=== PATIENT | male | born 1960 | race Caucasian/White ===

== ENCOUNTER 2019-09-28 15:05 | Emergency (ER) | payer OTHER ==
[~2019-09-28] VITALS: Ht 177.8 cm; Wt 95.3 kg
[2019-09-28 15:24] VITALS: BP 154/80
[2019-09-28] MEDS ORDERED: ACETYLCYSTEINE 10% (100 MG/ML) 100 MG/ML VIAL INH STA (15:59)
[2019-09-28] MEDS ORDERED: ALBUTEROL SULFATE/IPRATROPIU 3 ML SOL IH ONE (16:00)
[2019-09-28 17:07] VITALS: BP 133/68
== END 2019-09-28 17:06 | disposition home or self-care (01) ==
LOC: MED 15:05
DX: J20.9 Acute bronchitis, unspecified (principal); J44.9 Chronic obstructive pulmonary disease, unspecified; F41.9 Anxiety disorder, unspecified; F12.90 Cannabis use, unspecified, uncomplicated; Z71.6 Tobacco abuse counseling
CPT/HCPCS: 71045; 94640; 99283; J7620; Q0092

== ENCOUNTER 2019-12-28 07:14 | Inpatient (IN) | payer OTHER ==
[~2019-12-28] VITALS: Ht 177.8 cm; Wt 90.7 kg
[2019-12-28] VITALS (12 sets, daily range): BP systolic 101–127; BP diastolic 57–79
--- NOTE | 2019-12-28 07:37 | NUR ---
59 Y/O MALE C/O RLQ PAIN X 3 DAYS. STATES 9/10 BURNING PAIN, WORSE WITH PALPATION. DENIES N/V/D. STATES HE HAD A BOWEL MOVEMENT THIS MORNING, BUT IT WAS SMALLER THAN NORMAL. LAST NORMAL BM WAS 3-4 DAYS AGO. ABD HARD, ROUND, TENDER TO PALP. PT SITTING UPRIGHT CALM AND PLEASANT. STATES NO MEDS TAKEN FOR PAIN. VSS MEDHX: DENIES ALLERGIES: NKA
--- NOTE | 2019-12-28 07:40 | NUR ---
Dr. Lau is evaluating the patient at bedside.
--- NOTE | 2019-12-28 07:40 | NUR ---
DR PARTIDA AT BEDSIDE EXAMINING PT
[2019-12-28] MEDS ORDERED: KETOROLAC 60 MG/2 ML VIAL IM ONE (07:45)
[2019-12-28] MEDS ORDERED: ACETAMINOPHEN 325 MG TAB PO ONE (07:50)
--- NOTE | 2019-12-28 07:51 | NUR ---
PT REFUSED TORADOL IM. DR PARTIDA MADE AWARE
--- NOTE | 2019-12-28 08:07 | NUR ---
PT RETURNED FROM RADIOLOGY VIA [facility]
--- NOTE | 2019-12-28 08:18 | NUR ---
20G IV PLACED TO LT AC. LABS DRAWN FROM IV BY RN.
[2019-12-28 08:27] LABS: BASOPHILS % (AUTO) 0.3 % (0.0-2.0); EOSINOPHILS % (AUTO) 0.2 % (0.0-4.0); HEMATOCRIT 42.9 % (36-52); HEMOGLOBIN 14.8 g/dL (12.0-18.0); LYMPHOCYTES # (AUTO) 0.9 K/uL (2.0-11.5); LYMPHOCYTES % (AUTO) 5.7 % (20.5-51.1); MEAN CORPUSCULAR HEMOGLOBIN 31 pg (27-31); MEAN CORPUSCULAR HGB CONC 34 g/dL (33-37); MEAN CORPUSCULAR VOLUME 89.3 fL (80-94); MONOCYTES # (AUTO) 1.4 K/uL (0.8-1.0); MONOCYTES % (AUTO) 8.7 % (1.7-9.3); NEUTROPHILS # (AUTO) 13.5 K/uL (1.8-7.7); NEUTROPHILS % (AUTO) 85.1 % (42.2-75.2); PLATELET COUNT (AUTO) 316 K/uL (140-450); WHITE BLOOD COUNT (AUTO) 15.9 K/uL (4.8-10.8)
[2019-12-28 08:42] LABS: ALBUMIN 3.4 g/dL (3.4-5.0); ANION GAP 14.7 (8-16); CARBON DIOXIDE 23.4 mmol/L (21-32); CREATININE 1.1 mg/dL (0.6-1.3); POTASSIUM 4.1 mmol/L (3.5-5.1)
[2019-12-28] MEDS ORDERED: NACL 0.9% 1,000 ML IV ONE (09:25)
[2019-12-28] MEDS ORDERED: PIPERACILLIN/TAZOBACTAM 3.375 GM in DEXTROSE 5% 50 ML IV ONE (09:25)
[2019-12-28] MEDS ORDERED: PIPERACILLIN/TAZOBACTAM 3.375 GM VIAL IV ONE (09:37)
--- NOTE | 2019-12-28 10:26 | NUR ---
RESTING IN BED, VISIBLE RISE AND FALL OF THE CHEST. RR EVEN AND UNLABORED. VSS. WILL CONTINUE TO MONITOR.
[2019-12-28] MEDS ORDERED: MORPHINE SULFATE 4 MG/ML SYR IVP PRN (10:30)
[2019-12-28] MEDS ORDERED: ALBUTEROL 0.083% 2.5 MG/3 ML NEBU INH PRN (10:30)
[2019-12-28] MEDS ORDERED: ZOLPIDEM 5 MG TAB PO PRN (10:30)
[2019-12-28] MEDS ORDERED: MORPHINE SULFATE 2 MG/ML SYR IVP PRN (10:30)
[2019-12-28] MEDS ORDERED: LACTATED RINGERS 1,000 ML IV ONE (10:35)
--- NOTE | 2019-12-28 10:44 | NUR ---
Dr. Guevara is evaluating the patient at bedside.
--- NOTE | 2019-12-28 10:55 | NUR ---
Dr. Willis is evaluating the patient at bedside.
--- NOTE | 2019-12-28 11:24 | NUR ---
LAYING IN BED EYES CLOSED, RR EVEN AND UNLABORED. VSS. WILL CONTINUE TO MONITOR
--- NOTE | 2019-12-28 11:48 | NUR ---
PT TAKEN TO OR VIA WHEELCHAIR AT THIS TIME.
[2019-12-28] MEDS ORDERED: BUPIVACAINE-MPF/EPI 0.25% 30 ML VIAL INJ ONE (12:01)
[2019-12-28] MEDS ORDERED: SUCCINYLCHOLINE CHLORIDE 200 MG/10 ML VIAL IVP ONE (12:15)
[2019-12-28] MEDS ORDERED: DEXAMETHASONE 4 MG/ML VIAL ONE (12:15)
[2019-12-28] MEDS ORDERED: HYDROmorphone PFS 2 MG/ML SYR ONE (12:15)
[2019-12-28] MEDS ORDERED: ONDANSETRON 4 MG/2 ML VIAL ONE (12:15)
[2019-12-28] MEDS ORDERED: DESFLURANE 240 ML BTL INH ONE (12:15)
[2019-12-28] MEDS ORDERED: PROPOFOL 200 MG/20 ML VIAL IV ONE (12:15)
[2019-12-28] MEDS ORDERED: ROCURONIUM 50 MG/5 ML VIAL IV ONE (12:15)
[2019-12-28] MEDS ORDERED: KETOROLAC 30 MG/ML VIAL ONE (12:15)
[2019-12-28] MEDS ORDERED: fentaNYL 0.05 MG/ML VIAL ONE (12:15)
[2019-12-28] MEDS ORDERED: HYDROmorphone 1 MG/ML AMP IVP PRN (12:45)
[2019-12-28] MEDS ORDERED: ONDANSETRON 4 MG/2 ML VIAL IVP PRN (12:45)
[2019-12-28] MEDS ORDERED: GENTAMICIN 80 MG/2 ML VIAL ONE (14:10)
--- NOTE | 2019-12-28 15:23 | NUR ---
DISCHARGE PLANNING: THIS IS A 59 Y/O MALE PATIENT FROM HOME, WHO CAME IN DUE TO WORSENING ACUTE ABDOMINAL PAIN FOR 3-4 DAYS. PAST MEDICAL HISTORY OF COPD. INITIAL DIAGNOSIS OF ACUTE DIVERTICULITIS. CURRENT LABS INCLUDE WBC 15.9, H/H 14.8/42.9, NA/K 134/4.1, BUN/CREA 15/1.1. ON ZOSYN. SURGICAL CONSULT IN PLACE. DC PLAN BACK TO HOME ONCE STABLE. Addendum: 12/29/19 at 1531 by Laurie Goncalves CM S/P EX LAP WITH DR. SNOW . CURRENT LABS INCLUDE WBC 14.3, H/H 13.2/39.5, NA/K 136/4.6, BUN/CREA 11/0.9. ON ZOSYN AND BUMEX. MRSA NARES AND BLOOD C/S PENDING. DC PLAN BACK TO HOME ONCE STABLE. Addendum: 01/01/20 at 1205 by Laurie Goncalves CM ON FULL LIQUID DIET. WITH ORDER TO DC FC. GRACE DRAIN DC YESTERDAY. NGT HAD BEEN DC'D WELL YESTERDAY. ON ZOSYN. DC PLAN PENDING ON PATIENT'S RESPONSE TO TREATMENT.
--- NOTE | 2019-12-28 16:40 | NUR ---
TRANSFERRED IN FROM RR THIS 59 YEAR OLD OLD WHITE MALE PER BED ACCOMPANIED BY RR NURSES S/P EXPLORATORY LAPAROTOMY, SMALL BOWEL RESECTION, ENTEROLYSIS, BOWEL ANASTOMOSIS. PT. IS DROWSY BUT EASY TO AROUSE. FOLLOWS SIMPLE COMMANDS. 02 AT 5L/MASK. NGT TO LOW INT. SUCTION WITH SMALL AMT COFFEE GROUND DR. LOWER ABD DRESSINGS DRY AND INTACT. GRACE DRAINAGE IN PLACE WITH DARK RED DR. ABDOMINAL BINDER IN PLACE. AGUILAR CATH. INTACT AND PATENT DRAINING TO LIGHT ANTIONETTE URINE. IV LR INFUSING VIA LT. AC G 20 ANGIO CATH.
--- NOTE | 2019-12-28 16:45 | NUR ---
DR. SNOW CALLED. REPORT ON PT'S CONDITION GIVEN. GAVE ORDERS.
--- NOTE | 2019-12-28 17:00 | NUR ---
PT'S SISTER JACK CALLED. UPDATED ON PT'S CONDITION.
--- NOTE | 2019-12-28 17:15 | NUR ---
IV CHANGED TO D5 1/2 NS AT 70 ML/HR.
[2019-12-28] MEDS: PIPERACILLIN/TAZOBACTAM 3.375 GM in DEXTROSE 5% 50 ML IV SCH (17:22)
[2019-12-28] MEDS: DEXT 5% / NACL 0.45% 1,000 ML IV SCH (17:37)
--- NOTE | 2019-12-28 18:00 | NUR ---
MORE AWAKE AND ALERT. RESPONDS APPROPRIATELY TO QUESTIONS. ABDOMINAL DRESSINGS DRY AND INTACT. GRACE DRAINED 60 ML. NGT TO LOW INT. SUCTION. SMALLL AMT. COFFEE GROUND DRAINAGE. DENIES ANY PAIN. INSTRUCTED TO INFORM NURSE IF HE HAS ANY PAINS/DISCOMFORTS.
--- NOTE | 2019-12-28 19:15 | NUR ---
REPORT GIVEN TO JON CALVERT.
--- NOTE | 2019-12-28 19:17 | NUR ---
RECEIVED PT FROM AM SHIFT RN. ALERT AND ORIENTED X4. PT AND CALM AND COOPERATIVE. ON SIMPLE MASK 5L/MIN. LUNGS SOUNDS CLEAR. RESPIRATIONS EVEN AND UNLABORED.SINUS BRADYCARDIA ON MONITOR. IV SITE, LEFT AC 20 GAUGE, D5 1/2 NS AT 70ML/HR. BOWEL SOUNDS ACTIVE. CAP REFILL LESS THAN 2 SECONDS. GRACE DRAIN, AND ABDOMINAL BINDER IN PLACE. PT ON NPO. AGUILAR CATHETER IN PLACE. DENIES PAIN. WILL CONTINUE TO MONITOR.
--- NOTE | 2019-12-28 20:00 | NUR ---
PT RESTING IN BED, AWAKE AND ALERT. WATCHING TELEVISION. HOB 30 DEGREES. BED LOCKED IN LOWEST POSITION. WILL CONTINUE TO MONITOR.
--- NOTE | 2019-12-28 22:14 | NUR ---
RECEIVED PT ON 5L SIMPLE MASK. RT TOOK OFF SIMPLE MASK AND PLACED ON 3L NC WITH SPO2 OF 95%. PT IN NO APPARENT RESPIRATORY DISTRESS AT THIS TIME. PT REFUSED CPAP AT NIGHT. WILL CONTINUE TO MONITOR PT.
[2019-12-28] MEDS: HYDROmorphone 1 MG/ML AMP IVP PRN (23:01)
--- NOTE | 2019-12-28 23:01 | NUR ---
PT COMPLAINING OF 4/10 PAIN FROM SURGERY SITE. 1 MG OF DILAUDID GIVEN. WILL CONTINUE TO MONITOR.
--- NOTE | 2019-12-28 23:32 | NUR ---
PT STATES RELIEF OF PAIN.
[2019-12-29] VITALS (11 sets, daily range): BP systolic 93–135; BP diastolic 53–89
[2019-12-29] MEDS: PIPERACILLIN/TAZOBACTAM 3.375 GM in DEXTROSE 5% 50 ML IV SCH ×3 (00:45→17:57)
--- NOTE | 2019-12-29 01:15 | NUR ---
PT RESTING IN BED, EYES CLOSED. RESPIRATIONS EVEN AND UNLABORED. CHEST RISE IS SYMMETRICAL. WILL CONTINUE TO MONITOR.
[2019-12-29] MEDS: HYDROmorphone 1 MG/ML AMP IVP PRN ×5 (02:34→17:55)
--- NOTE | 2019-12-29 02:34 | NUR ---
PT COMPLAINING OF 4/10 PAIN. 1MG DILAUDID GIVEN.
--- NOTE | 2019-12-29 03:07 | NUR ---
PT STATES RELIEF OF PAIN. WILL CONTINUE TO MONITOR.
--- NOTE | 2019-12-29 05:30 | NUR ---
PT C/O PAIN. 1 MG DILAUDID GIVEN.
[2019-12-29] MEDS ORDERED: BUMETANIDE 1 MG/4 ML VIAL IV SCH (06:00)
[2019-12-29] MEDS: DEXT 5% / NACL 0.45% 1,000 ML IV SCH ×2 (06:25→21:10)
--- NOTE | 2019-12-29 06:30 | NUR ---
PT STATES RELIEF OF PAIN
[2019-12-29 06:40] LABS: ALBUMIN 2.5 g/dL (3.4-5.0); ANION GAP 12.3 (8-16); CARBON DIOXIDE 25.3 mmol/L (21-32); CREATININE 0.9 mg/dL (0.6-1.3); MAGNESIUM 2.1 mg/dL (1.8-2.4); POTASSIUM 4.6 mmol/L (3.5-5.1); TOTAL BILIRUBIN 0.5 mg/dL (0.0-1.0)
--- NOTE | 2019-12-29 07:30 | NUR ---
REPORT RECEIVED FROM ENRIKE. 02 SAT 86 TO 88% ON ROOM AIR. DENIES ANY SOB. 02 1 L/MIN/NC ADM. 02 SAT 91 TO 94% NOTED. NGT TO LOW INTERMITTENT SUCTION WITH MOD. AMT COFFEE GROUND DRAINAGE. ABDOMINAL DRESSINGS DRY AND INTACT. GRACE IN PLACE WITH SMALL AMT SEROSANGUINOUS DRAINAGE. ABDOMINAL BINDER IN PLACE. FC INTACT AND PATENT DRAINING TO YELLOWISH URINE. WILL DC FC AT 0800. IV D5 O.45% NS AT 70 ML/HR VIA LT AC IV SITE.
--- NOTE | 2019-12-29 07:55 | NUR ---
DR. SNOW CALLED. UPDATED ON PT'S CONDITION. AWARE OF URINE OUTPUT AFTER BUMEX GIVEN = 900 ML CLEAR YELLOWISH. GAVE ORDERS. IVF INCREASED TO 80 ML/HR.
--- NOTE | 2019-12-29 08:00 | NUR ---
AGUILAR CATH. DC'D WITHOUT ANY DIFFICULTY. URINAL AT BEDSIDE. INSTRUCTED PT.ON HOW TO USE THE URINAL AND TO CALL NURSE IF HE NEEDS ANY ASSISTANCE.
[2019-12-29 08:10] LABS: BASOPHILS # (AUTO) 0.1 K/uL (0.00-0.22); BASOPHILS % (AUTO) 0.8 % (0.0-2.0); EOSINOPHILS % (AUTO) 0.2 % (0.0-4.0); HEMATOCRIT 39.5 % (36-52); HEMOGLOBIN 13.2 g/dL (12.0-18.0); LYMPHOCYTES # (AUTO) 0.8 K/uL (2.0-11.5); LYMPHOCYTES % (AUTO) 5.6 % (20.5-51.1); MEAN CORPUSCULAR HEMOGLOBIN 31 pg (27-31); MEAN CORPUSCULAR HGB CONC 33 g/dL (33-37); MONOCYTES # (AUTO) 1.1 K/uL (0.8-1.0); MONOCYTES % (AUTO) 7.5 % (1.7-9.3); NEUTROPHILS # (AUTO) 12.3 K/uL (1.8-7.7); NEUTROPHILS % (AUTO) 85.9 % (42.2-75.2); PLATELET COUNT (AUTO) 329 K/uL (140-450); RED BLOOD CELL COUNT(AUTO) 4.29 MIL/uL (4.20-6.10); RED CELL DISTRIBUTION WIDTH 14.6 % (11.6-13.7); WHITE BLOOD COUNT (AUTO) 14.3 K/uL (4.8-10.8)
--- NOTE | 2019-12-29 08:27 | NUR ---
PATIENT HAS BEEN SCREENED AND CATEGORIZED MODERATE NUTRITION RISK. PATIENT WILL BE SEEN WITHIN 3-5 DAYS OF ADMISSION. 12/30/19 01/01/[address]
[2019-12-29] MEDS: ENOXAPARIN 40 MG/0.4 ML SYR SUBQ SCH (09:04)
--- NOTE | 2019-12-29 10:37 | NUR ---
DR. KAYLA MOISE HERE TO SEE AND EXAMINE PT.
--- NOTE | 2019-12-29 10:40 | NUR ---
DR. KAYLA MOISE MADE THAT PT'S 02 SAT GOES DOWN TO 86 TO 88% ON RA.
--- NOTE | 2019-12-29 11:30 | NUR ---
VISITORS AT BEDSIDE. PT. IS CHEERFUL AND CONVERSANT.
[2019-12-29] MEDS ORDERED: NICOTINE TRANSD SYS 21 MG/24 HR PATCH TD SCH (13:00)
--- NOTE | 2019-12-29 13:35 | NUR ---
DR. SNOW HERE TO SEE AND EXAMINE PT. GAVE ORDERS.
--- NOTE | 2019-12-29 14:05 | NUR ---
ASSISTED TO STAND AT BEDSIDE TO URINATE. USED THE URINAL. UNABLE TO VOID AT THIS TIME. WANTS TO TRY AGAIN LATER. NO HYPOGASTRIC DISTENTION NOTED.
--- NOTE | 2019-12-29 14:15 | NUR ---
COUGHED UP CLEAR SECRETIONS. STATES HE MIGHT NEED BREATHING TREATMENT. C/O SL SOB W/ ACTIVITY. PER PT HE HAS INHALER PRN FOR HIS COPD. RESP. TREATMENT GIVEN BY RT. FELT BETTER AFTER.
--- NOTE | 2019-12-29 14:45 | NUR ---
PER PT HE PREFERS INHALER THAN THE HHN RESP. TX. DR. KAYLA MOISE PAGED THROUGH HIS OFFICE.
--- NOTE | 2019-12-29 15:15 | NUR ---
TRANSFERRED TO TELE 107 A PER BED ON TELE MONITOR. NGT CLAMPED FOR TRANSPORT. 02 AT 1L/MIN/NC. PT IS AWAKE AND ALERT. ABD. DRESSING DRY AND INTACT. GRACE IN PLACE. SMALL AMT SEROSANGUINOUS DRSteven NOTED. REPORT GIVEN TO JON LEON.
--- NOTE | 2019-12-29 15:30 | NUR ---
REPORT RECEIVED FROM ICU CHARGE NURSE YUNIOR. PT AWAKE, ALERT. PT ON O2 NC 2L/MIN, O2 SATS 94 %. HAS IV TO LEFT AC RUNNING D5 O.45% NS AT 70 ML/HR . NGT TO LOW INTERMITTENT SUCTION WITH MOD. AMT COFFEE GROUND DRAINAGE. ABDOMINAL DRESSINGS DRY AND INTACT. GRACE IN PLACE WITH SMALL AMT SEROSANGUINOUS DRAINAGE. ABDOMINAL BINDER IN PLACE. PT STATED HE WANTS TO URINATE BUT HE CAN NOT. HE WILL TRY TO DO IT BY HIMSELF. CALL LIGHT IN REACH, WILL CONTINUE TO MONITOR.
[2019-12-29] MEDS ORDERED: ALBUTEROL HFA MDI 90 MCG/ACTUATION 18 GM INH PRN (16:15)
--- NOTE | 2019-12-29 16:49 | NUR ---
pt c/o unable to urinate. paged .
--- NOTE | 2019-12-29 16:57 | NUR ---
dr. moise called back. notified pt unable to urinate after D/C F/C. DR. MOISE ORDERED STRAIGHT CATH ONE TIME AND FLOMAX 0.4 MG DAILY. INSERTED STRAIGHT CATH , 600 CC URINE CAME OUT.
--- NOTE | 2019-12-29 18:30 | NUR ---
PT SLEEPING IN BED. NO S/S OF RESPIRATORY DISTRESS OR PAIN NOTED.
--- NOTE | 2019-12-29 19:30 | NUR ---
RECEIVED REPORT FROM CAROLYN AT BEDSIDE FOR CONTINUITY OF CARE, PT IN STABLE CONDITION.
--- NOTE | 2019-12-29 20:00 | NUR ---
PT IN SITTING UP IN BED WITH N G TUBE IN PLACE AND SUCTIONING AT INTERMITTED SETTING. PT HAS 400MLS OF DARK BROWN BLOODY FLUID ALREADY SUCTIONED. PT ALSO HAS ABDOMINAL BINDER INTACT, COVERING SURGICAL DRESSINGS. GRACE DRAINS INTACT WITH NO DRAINAGE AT THIS TIME. ALL REQUESTED NEEDS ATTENDED BY STAFF. AND ALL UNIVERSAL PRECAUTIONS IN PLACE.
[2019-12-29] MEDS ORDERED: ALBUTEROL 0.083% 2.5 MG/3 ML NEBU INH ONE (20:45)
[2019-12-29] MEDS: HYDROmorphone PFS 2 MG/ML SYR IVP PRN (20:49)
--- NOTE | 2019-12-29 21:00 | NUR ---
PT SITTING UP IN BED NG TUBE INTACT WITH ORDERED INTERMITTENT SUCTIONING. IV SITE INTACT AND ASYMPTOMATIC RUNNING D5 1/2 NS AT 80 MLS/HR ORDERED. PT C/O SEVERE PAIN IN ABDOMEN WELL NAUSEA, PT GIVEN IVP /PRN DILAUDID FOR PAIN AND ZOFRAN FOR NAUSEA. WILL MONITOR FOR EFFECT. ALL UNIVERSAL PRECAUTIONS IN PLACE.
[2019-12-29] MEDS: ONDANSETRON 4 MG/2 ML VIAL IVP PRN (21:01)
--- NOTE | 2019-12-29 21:32 | NUR ---
RECEIVED PATIENT ON 2L NASAL CANNULA, PULSE OX SAT 89%-90%. INCREASED TO 3LPM, PULSE OX INCREASED SAT 94%. PRN HHN GIVEN DUE TO WHEEZING. TOLERATED TX WELL WITHOUT ADVERSE SIDE EFFECTS. NO ACUTE RESPIRATORY DISTRESS NOTED AT THIS TIME. PT MADE AWARE OF ORDERED MEDICATION FREQUENCY. WILL CONTINUE TO MONITOR.
--- NOTE | 2019-12-29 21:35 | NUR ---
PT REFUSED CPAP AT NIGHT. PT IN NO APPARENT RESPIRATORY DISTRESS AT THIS TIME. WILL CONTINUE TO MONITOR PT.
--- NOTE | 2019-12-29 22:30 | NUR ---
PT IN BED ASLEEP NO S/S OF PAIN OR DISTRESS NOTED. ALL UNIVERSAL AND ASPIRATION PRECAUTIONS IN PLACE.
[2019-12-30] VITALS: BP 116/65
[2019-12-30] MEDS: PIPERACILLIN/TAZOBACTAM 3.375 GM in DEXTROSE 5% 50 ML IV SCH ×4 (01:11→18:20)
[2019-12-30] MEDS: HYDROmorphone PFS 2 MG/ML SYR IVP PRN ×4 (01:44→14:24)
--- NOTE | 2019-12-30 02:00 | NUR ---
SPOKE WITH MD MOISE REGARDING C/O OF PT CANT URINATE, MD MOISE ORDERED STRAIGHT CATH PRN. PT STRAIGHT CATHED GOT 650 OF ANTIONETTE URINE. PT ALSO GIVEN IVP DILAUDID FOR SEVERE PAIN.
[2019-12-30 04:00] VITALS: BP 133/82
[2019-12-30] MEDS: ONDANSETRON 4 MG/2 ML VIAL IVP PRN (05:52)
[2019-12-30] MEDS: LORazepam 2 MG/ML VIAL IVP PRN (05:56)
--- NOTE | 2019-12-30 06:00 | NUR ---
PT AWAKEN AND WAS AGITATED REGARDING THE NG TUBE, HE ALSO C/O OF DISCOMFORT IN GTUBE. PT GIVEN IVP ATIVAN WELL IVP DILAUDID FOR SEVERE PAIN AND ZOFRAN VINICIO C/O OF NAUSEA. PT STRAIGHTER CABBED AGAIN AND GOT OUT 350 OF ANTIONETTE URINE. PT NOW CALM.
[2019-12-30 07:15] LABS: BASOPHILS # (AUTO) 0.1 K/uL (0.00-0.22); BASOPHILS % (AUTO) 0.8 % (0.0-2.0); EOSINOPHILS % (AUTO) 0.5 % (0.0-4.0); HEMATOCRIT 39.2 % (36-52); HEMOGLOBIN 13.4 g/dL (12.0-18.0); LYMPHOCYTES # (AUTO) 1.3 K/uL (2.0-11.5); MEAN CORPUSCULAR HEMOGLOBIN 32 pg (27-31); MEAN CORPUSCULAR HGB CONC 34 g/dL (33-37); MEAN CORPUSCULAR VOLUME 91.7 fL (80-94); MONOCYTES # (AUTO) 0.8 K/uL (0.8-1.0); MONOCYTES % (AUTO) 8.2 % (1.7-9.3); NEUTROPHILS # (AUTO) 7.9 K/uL (1.8-7.7); NEUTROPHILS % (AUTO) 77.5 % (42.2-75.2); PLATELET COUNT (AUTO) 358 K/uL (140-450); RED BLOOD CELL COUNT(AUTO) 4.27 MIL/uL (4.20-6.10); WHITE BLOOD COUNT (AUTO) 10.2 K/uL (4.8-10.8)
--- NOTE | 2019-12-30 07:22 | NUR ---
RECEIVED BEDSIDE REPORT FROM FORKLIFT TRUCK OPERATOR NURSE RITA FOR CONTINUITY OF CARE. PT IS RESTING ON BED AND AROUSABLE TO VOICE. RESPIRATION EVEN AND UNLABORED ON RA. DENIED PAIN, SOB, AND DIZZINESS. NO SIGNS OF DISTRESS NOTED. IV ON LAC 20G, CLEAN AND INTACT, INFUSING PER MD ORDER. NG TUBE IN PLACE AND CONNECTED TO INTERMITTER SUCTIONING. GRACE DRAINAGE IN PLACE AND SMALL AMOUNT OF SEROSANGUINEOUS. ABD WOUND NOTED, COVERED WITH DRESSING, DRESSING CLEAN AND DRY. PT IS BEDREST AT THIS TIME. ICE CHIP ONLY. TELE MONITOR ATTACHED. SAFETY MEASURES IN PLACE. BED IN LOW POSITION AND CALL LIGHT WITHIN REACH. INSTRUCTED PT TO USE THE CALL LIGHT FOR ANY ASSISTANCE AND PT AWARE.
[2019-12-30 07:35] LABS: ALBUMIN 2.4 g/dL (3.4-5.0); ANION GAP 10.4 (8-16); CARBON DIOXIDE 31.2 mmol/L (21-32); POTASSIUM 3.6 mmol/L (3.5-5.1); TOTAL BILIRUBIN 0.5 mg/dL (0.0-1.0)
[2019-12-30 08:00] VITALS: BP 121/77
[2019-12-30] MEDS ORDERED: BUMETANIDE 1 MG/4 ML VIAL IV SCH (08:00)
[2019-12-30] MEDS: ENOXAPARIN 40 MG/0.4 ML SYR SUBQ SCH (08:46)
[2019-12-30] MEDS: DEXT 5% / NACL 0.45% 1,000 ML IV SCH ×2 (08:48→20:39)
[2019-12-30] MEDS: NICOTINE TRANSD SYS 21 MG/24 HR PATCH TD SCH (08:48)
[2019-12-30] MEDS: TAMSULOSIN 0.4 MG CAP PO SCH (08:48)
--- NOTE | 2019-12-30 08:50 | NUR ---
CHECKED VITAL SIGNS PRIOR TO MEDS ADMINISTRATION, VITAL SIGNS: BP 121/77 PULSE 66, RR 18, SPO2 96% ON 2LPM VIA NC, DENIED PAIN. ADMINISTERED MEDS PER MD ORDER, MEDS EDUCATION PROVIDED TO PT AND PT VERBALIZED OK. STOP NG SUCTIONING FOR NOW, ADMINISTERED FLOMAX VIA NG TUBE. PT AWAKE AND RESTING ON BED AT THIS TIME. NO SIGNS OF DISTRESS NOTED. TELE MONITOR ATTACHED. SAFETY MEASURES IN PLACE.
--- NOTE | 2019-12-30 09:56 | NUR ---
PREMEDICATED PT FOR 10/10 PAIN WITH DILAUDID VIA IVP PRIOR TO DR SNOW CHANGES DRESSING. DR TAYLOR CHANGED DRESSING AND PT TOLERATED WELL. PT IS URINARY RETENTION, DR SNOW ORDERED TO INSERT A AGUILAR AND KEEP IN FOR [address] CARLSON REMOVED NG TUBE FROM PT. PT IS RESTING ON BED AT THIS TIME. NO SIGNS OF DISTRESS NOTED. TELE MONITOR ATTACHED. SAFETY MEASURES IN PLACE.
[2019-12-30] MEDS ORDERED: SIMETHICONE 40 MG/0.6 ML PO PRN (10:20)
[2019-12-30] MEDS ORDERED: SIMETHICONE 80 MG TAB.CHEW PO PRN (10:20)
[2019-12-30] MEDS ORDERED: SIMETHICONE 80 MG TAB.CHEW PO SCH (10:30)
--- NOTE | 2019-12-30 11:13 | NUR ---
P.T. NOTES D/C FROM P.T. AFTER TX, ENDORSED TO NURSING; O2 SAT ROOM AIR=88-89%, 2L=92-93%, 3L-95% Addendum: 12/30/19 at 1114 by Maira Morris PT Amended: Links added.
--- NOTE | 2019-12-30 11:24 | NUR ---
ADMINISTERED MYLICON PER MD ORDER, MED EDUCATION PROVIDED TO PT AND PT VERBALIZED UNDERSTANDING. PT IS TALKING ON THE PHONE WITH HIS SISTER. NO SIGNS OF DISTRESS NOTED. TELE MONITOR ATTACHED. SAFETY MEASURES IN PLACE.
[2019-12-30 12:00] VITALS: BP 127/70
--- NOTE | 2019-12-30 12:02 | NUR ---
CALLED [employer] FOR SCD, NO ANSWER. LEFT A MESSAGE FOR SCD REQUEST FOR PT AND MY EXTENSION NUMBER TO CALL BACK.
--- NOTE | 2019-12-30 12:25 | NUR ---
ADMINISTERED ZOSYN PER MD ORDER, MED ED PROVIDED TO PT AND PT VERBALIZED OK. PT IS RESTING ON BED AT THIS TIME. DENIED PAIN, SOB, AND DIZZINESS. NO SIGNS OF DISTRESS NOTED. TELE MONITOR ATTACHED. SAFETY MEASURES IN PLACE.
--- NOTE | 2019-12-30 13:12 | NUR ---
PT IS RESTING ON BED. RESPIRATION EVEN AND UNLABORED ON 2LPM VIA NC. DENIED PAIN, SOB AND DIZZINESS. APPLIED SCD ON PT'S LEGS BILATERALLY. NO SIGNS OF DISTRESS NOTED. TELE MONITOR ATTACHED. TELE MONITOR ATTACHED.SAFETY MEASURES IN PLACE.
--- NOTE | 2019-12-30 14:24 | NUR ---
PT COMPLAINED 9/10 PAIN ON HIS INCISIONAL SITE, REPOSITIONED AND TAUGH PT TO USE RELAXATION TECHNIQUE, PT STATED "IT STILL HURT", MEDICATED PT FOR 9/10 PAIN WITH DILAUDID VIA IVP . MED EDUCATION PROVIDED TO PT AND PT SAID OK. PT IS RESTING ON BED AT THIS TIME. NO SIGNS OF DISTRESS NOTED. TELE MONITOR ATTACHED. SAFETY MEASURES IN PLACE.
--- NOTE | 2019-12-30 15:24 | NUR ---
PT IS AWAKE AND WATCHING TV ON BED AT THIS TIME. STATED HE HAS 2/10 PAIN AND IT'S TOLERABLE FOR HIM. NO SIGNS OF DISTRESS NOTED. TELE MONITOR ATTACHED. SAFETY MEASURES IN PLACE.
[2019-12-30 16:00] VITALS: BP 117/78
--- NOTE | 2019-12-30 17:02 | NUR ---
EMPTIED 5 ML RED DRAINAGE FROM GRACE. PT AWAKE AND TALKING TO SISTER JACK AT BEDSIDE. DENIED PAIN, SOB AND DIZZINESS. NO SIGNS OF DISTRESS NOTED. SCD ON BILATERALLY. TELE MONITOR ATTACHED. SAFETY MEASURES IN PLACE.
--- NOTE | 2019-12-30 18:21 | NUR ---
ADMINISTERED ZOSYN PER MD ORDER, MED ED PROVIDED TO PT AND PT VERBALIZED OK. PT IS RESTING AND WATCHING TV ON BED AT THIS TIME. DENIED PAIN, SOB, AND DIZZINESS. NO SIGNS OF DISTRESS NOTED. TELE MONITOR ATTACHED. SAFETY MEASURES IN PLACE.
[2019-12-30] MEDS: ALBUTEROL SULFATE/IPRATROPIU 3 ML SOL IH PRN (19:08)
--- NOTE | 2019-12-30 19:11 | NUR ---
ENDORSED PT AT BEDSIDE TO BLOOD BANK MANAGER NURSE RITA FOR CONTINUITY OF CARE. PT IS AWAKE AND GETTING A BREATHING TREATMENT FROM RT AT THIS TIME. NO SIGNS OF DISTRESS NOTED. TELE MONITOR ATTACHED. PT IS IN STABLE CONDITION. SAFETY MEASURES IN PLACE.
--- NOTE | 2019-12-30 19:15 | NUR ---
RECEIVED REPORT FROM AME RN DAYSHIFT NURSE AT BEDSIDE FOR CONTINUITY OF CARE, PT IN STABLE CONDITION.
[2019-12-30 20:00] VITALS: BP 113/73
--- NOTE | 2019-12-30 20:37 | NUR ---
ROUNDS MADE PT IS SITTING UP IN BED POST NEB TREATMENT AND ON 2 LITERS VIA N/C. DRESSING INTACT WITH MINIMAL DRAINAGE NOTED AND ABDOMINAL BINDER INTACT. AGUILAR CATH IN PLACE DRAINING ANTIONETTE URINE. PT VERITO PAIN AT THIS TIME V/S FOLLOWS; T 98.5 P 74 R 20 B/P 113/73 02 93% WITH 2 LITERS VIA N/C. ALL FALLS PRECAUTIONS IN PLACE.
--- NOTE | 2019-12-30 21:00 | NUR ---
PT IN BED IV SITE LAC 20 G INTACT AND ASYMPTOMATIC RUNNING D5 1/2NS RUNNING AT 80 MLS/HR. PT HS NO MEDS DUE AT THIS TIME AND DENIES ANY PAIN. ALL FALLS PRECAUTIONS IN PLACE.
--- NOTE | 2019-12-30 22:30 | NUR ---
PT IN BED SLEEPING NO S/S OF PAIN OR DISTRESS NOTED N/C INTACT AND RUNNING AT 2 LITERS VIA N/C. GRACE AND AGUILAR CATHETER INTACT AND ASYMPTOMATIC. ALL FALLS PRECAUTIONS IN PLACE.
[2019-12-31] VITALS: BP 113/60
[2019-12-31] MEDS: HYDROmorphone 1 MG/ML AMP IVP PRN ×2 (00:29→16:33)
--- NOTE | 2019-12-31 00:30 | NUR ---
PT IN BED, ZOSYN HUNG AND RUNNING AT 100MLS/HR ORDERED. V/S FOLLOWS: T 97.4 P 64 R 18 B/P 113/60 02 93% ON ROOM AIR. ALL FALLS PREVENTIONS IN PLACE. Addendum: 12/31/19 at 0805 by Ernestina Wong RN PT ALSO COMPLAINED OF MODERATE PAIN AND WAS GIVEN IVP 1MG DILAUDID.
[2019-12-31] MEDS: PIPERACILLIN/TAZOBACTAM 3.375 GM in DEXTROSE 5% 50 ML IV SCH ×5 (00:44→23:33)
[2019-12-31] MEDS: LORazepam 2 MG/ML VIAL IVP PRN ×2 (03:05→12:06)
--- NOTE | 2019-12-31 03:15 | NUR ---
PT UPSET AND WORRIED AND STARTED CRYING THAT HE WON'T GET BETTER, PT ENCOURAGED WITH CURRENT PROGRESS. HE RECEIVED IVP ATIVAN. PT ALSO DECLINED TO HAVE DRESSING CHANGED. SOME MINIMAL DRAINAGE NOTED, PT DECLINED TO HAVE DRESSING CHANGED, DRESSING WAS REINFORCED.
[2019-12-31 04:00] VITALS: BP 122/74
--- NOTE | 2019-12-31 06:05 | NUR ---
PT IN BED DRESSING INTACT W ABD BINDER, IV SITE INTACT AND RUNNING FLUIDS ORDERED. PT GIVEN IVP DILAUDID FOR SEVERE PAIN GRACE DRAINED 5MLS OF KERRIE BLOOD. ALL FALLS PRECAUTIONS IN PLACE.
[2019-12-31] MEDS: HYDROmorphone PFS 2 MG/ML SYR IVP PRN (06:47)
[2019-12-31 06:56] LABS: BASOPHILS # (AUTO) 0.1 K/uL (0.00-0.22); BASOPHILS % (AUTO) 1.3 % (0.0-2.0); EOSINOPHILS # (AUTO) 0.1 K/uL (0-0.4); EOSINOPHILS % (AUTO) 1.6 % (0.0-4.0); HEMATOCRIT 39.6 % (36-52); HEMOGLOBIN 13.5 g/dL (12.0-18.0); LYMPHOCYTES # (AUTO) 1.6 K/uL (2.0-11.5); LYMPHOCYTES % (AUTO) 19.5 % (20.5-51.1); MEAN CORPUSCULAR HEMOGLOBIN 31 pg (27-31); MEAN CORPUSCULAR HGB CONC 34 g/dL (33-37); MEAN CORPUSCULAR VOLUME 91.2 fL (80-94); MONOCYTES # (AUTO) 0.7 K/uL (0.8-1.0); MONOCYTES % (AUTO) 7.8 % (1.7-9.3); NEUTROPHILS # (AUTO) 5.9 K/uL (1.8-7.7); NEUTROPHILS % (AUTO) 69.8 % (42.2-75.2); PLATELET COUNT (AUTO) 390 K/uL (140-450); RED BLOOD CELL COUNT(AUTO) 4.34 MIL/uL (4.20-6.10); RED CELL DISTRIBUTION WIDTH 14.1 % (11.6-13.7); WHITE BLOOD COUNT (AUTO) 8.4 K/uL (4.8-10.8)
[2019-12-31 07:18] LABS: ALBUMIN 2.3 g/dL (3.4-5.0); ANION GAP 10.9 (8-16); CARBON DIOXIDE 30.7 mmol/L (21-32); CREATININE 0.9 mg/dL (0.6-1.3); POTASSIUM 3.6 mmol/L (3.5-5.1); TOTAL BILIRUBIN 0.6 mg/dL (0.0-1.0)
--- NOTE | 2019-12-31 07:23 | NUR ---
RECEIVED PATIENT FROM SUPERVISOR ACCOUNTS RECEIVABLE NURSE FOR CONTINUITY OF CARE. PATIENT IS SLEEPING. RESPIRATIONS EVEN AND UNLABORED, ROOM AIR NO SOB. VISIBLE CHEST RISE NOTED. ON TELE MONITORING. ABDOMEN ROUND, SOFT, NONTENDER. ACTIVE BOWEL SOUNDS X4 QUADS. S/P EXPLORATION SURGERY/LAP APPENDECTOMY, DRESSING DRY AND INTACT. NO DRAINAGE. SKIN WARM, DRY. IV IN THE LEFT AC G22, RUNNING D51/2NS AT 80 ML/HR. IV PATENT AND FLUSHING WELL. PATIENT IS BED BOUND. FALL, SEIZURE, AND ASPIRATION PRECAUTIONS IN PLACE. BED IN LOW POSITION. CALL LIGHT IS WITHIN REACH. WILL CONTINUE TO MONITOR
--- NOTE | 2019-12-31 07:48 | NUR ---
DR. MOISE MADE A TELEPHONE ORDER FOR BUMEX 1MG IVP. WILL CARRY OUT ORDER
[2019-12-31 08:00] VITALS: BP 124/69
[2019-12-31] MEDS ORDERED: BUMETANIDE 1 MG/4 ML VIAL IV SCH (08:15)
[2019-12-31] MEDS: TAMSULOSIN 0.4 MG CAP PO SCH (08:36)
[2019-12-31] MEDS: NICOTINE TRANSD SYS 21 MG/24 HR PATCH TD SCH (08:37)
[2019-12-31] MEDS: ENOXAPARIN 40 MG/0.4 ML SYR SUBQ SCH (08:43)
--- NOTE | 2019-12-31 08:43 | NUR ---
GIVEN MORNING MEDICATIONS. FLOMAX PO. NICOTINE PATCH IN THE RIGHT UPPER ARM. LOVENOX IN THE LEFT UPPER ARM. PLATELET IS 390. EXPLAINED TO PATIENT MEDICATIONS AND SIDE EFFECTS. PATIENT VERBALIZED UNDERSTANDING. BED IN LOW POSITION. CALL LIGHT IS WITHIN REACH. WILL GIVE BUMEX ONCE IT'S AVAILABLE FROM PHARMACY
--- NOTE | 2019-12-31 08:49 | NUR ---
GIVEN BUMEX SCHEDULED. EXPLAINED TO PATIENT PURPOSE AND SIDE EFFECTS. PATIENT VERBALIZED UNDERSTANDING. BED IN LOW POSITION. CALL LIGHT IS WITHIN REACH. WILL CONTINUE TO MONITOR
--- NOTE | 2019-12-31 09:15 | NUR ---
CHARGE NURSE MIGUEL ANGEL MADE AWARE ABOUT RESULTS OF THE ABDOMINAL XRAY. WILL NOTIFY DR. MOISE AND DR. SNOW.
[2019-12-31] MEDS: DEXT 5% / NACL 0.45% 1,000 ML IV SCH ×2 (09:23→23:32)
[2019-12-31] MEDS: ALBUTEROL SULFATE/IPRATROPIU 3 ML SOL IH PRN ×2 (10:42→20:54)
--- NOTE | 2019-12-31 10:48 | NUR ---
CALLED RT BECAUSE PATIENT IS C/O OF SOB.
--- NOTE | 2019-12-31 10:49 | NUR ---
WILL TRY TO CALL DR. SNOW AGAIN.
--- NOTE | 2019-12-31 10:52 | NUR ---
DR. SNOW IS AWARE REGARDING THE RESULT OF KUB. HE ORDERED FOR PATIENT TO BE NPO. WILL CHANGE PATIENT'S DIET
[2019-12-31 12:00] VITALS: BP 131/78
--- NOTE | 2019-12-31 12:07 | NUR ---
GIVEN ATIVAN FOR ANXIETY. EXPLAINED TO PATIENT MED AND SIDE EFFECTS. PATIENT VERBALIZED UNDERSTANDING. BED IN LOW POSITION. CALL LIGHT IS WITHIN REACH. WILL CONTINUE TO MONITOR
--- NOTE | 2019-12-31 12:26 | NUR ---
HANG ZOSYN VIA IVPB. EXPLAINED TO PATIENT EMD AND SIDE EFFECTS. PATIENT VERBALIZED UNDERSTANDING. BED IN LOW POSITION. CALL LIGHT IS WITHIN REACH. AT BEDSIDE
--- NOTE | 2019-12-31 13:29 | NUR ---
GRACE DRAIN IS REMOVED BY DR. SNOW. DRAINAGE OF 5ML, FLANK BLOOD. PATIENT TOLERATED WELL. COVER WOUND WITH 2X2 AND TAPE.
[2019-12-31] MEDS ORDERED: BISACODYL 10 MG SUPP RC PRN (13:31)
--- NOTE | 2019-12-31 13:33 | NUR ---
PER DR. SNOW, DRESSING IS GOING TO BE CHANGED TOMORROW
--- NOTE | 2019-12-31 15:14 | NUR ---
PATIENT IS SLEEPING AT THIS TIME. NO SIGNS OF DISTRESS NOTED. ON 2L O2 VIA NC. NO SOB. BED IN LOW POSITION. CALL LIGHT IS WITHIN REACH. WILL CONTINUE TO MONITOR
[2019-12-31 16:00] VITALS: BP 131/77
--- NOTE | 2019-12-31 16:33 | NUR ---
GIVEN SIMETHICONE PO AND DILAUDID VIA IVP FOR PAIN 6/10 ABD PAIN. EXPLAINED TO PATIENT MEDICATIONS AND SIDE EFFECTS. PATIENT VERBALIZED UNDERSTANDING. BED IN LOW POSITION. CALL LIGHT IS WITHIN REACH. WILL CONTINUE TO MONITOR
[2019-12-31] MEDS: SIMETHICONE 40 MG/0.6 ML PO SCH (16:34)
--- NOTE | 2019-12-31 17:33 | NUR ---
REASSESSED FOR PAIN. PATIENT IS SLEEPING AT THIS TIME. NO SIGNS OF DISTRESS NOTED. BED IN LOW POSITION. CALL LIGHT IS WITHIN REACH. WILL CONTINUE TO MONITOR
--- NOTE | 2019-12-31 17:40 | NUR ---
PATIENT IS SLEEPING AT THIS TIME. NO SIGNS OF DISTRESS NOTED. BED IN LOW POSITION, CALL LIGHT IS WITHIN REACH. WILL CONTINUE TO MONITOR
--- NOTE | 2019-12-31 18:03 | NUR ---
HANG ZOSYN VIA IVPB. EXPLAINED TO PATIENT MED AND SIDE EFFECTS. BED IN LOW POSITION. CALL LIGHT IS WITHIN REACH.WILL CONTINUE TO MONITOR
--- NOTE | 2019-12-31 18:26 | NUR ---
MADE ROUNDS. PATIENT IS SLEEPING AT THIS TIME. ON 2L O2 VIA NC. NO SOB. RESPIRATIONS EVEN AND UNLABORED. BED IN LOW POSITION. CALL LIGHT IS WITHIN REACH.
--- NOTE | 2019-12-31 19:25 | NUR ---
ENDORSED PATIENT TO THE PEDIATRIC IMMUNOLOGIST NURSE FOR CONTINUITY OF CARE. PATIENT IS SLEEPING, NO SOB. NO PAIN. PATIENT IS IN STABLE CONDITION
--- NOTE | 2019-12-31 19:27 | NUR ---
RECEIVED PT FROM RN PT IS AAOX4 ON BED REST S/P EXPLORATORY LAPAROTOMY ABD DRESSING DRY AND INTACT IV ON LEFT AC INFUSING WELL, ON TELEMETRY SR , AGUILAR CATH DRAINING WELL YELLOW URINE INITIAL ASSESSMENT DONE
[2019-12-31 20:00] VITALS: BP 128/60
--- NOTE | 2019-12-31 21:38 | NUR ---
PT RECEIVING BREATHING TX NOT DISTRESS NOTED ON TELE SR
[2020-01-01] VITALS: BP 118/73
--- NOTE | 2020-01-01 | NUR ---
PT ON TELEMETRY SR NOT DISTRESS NOTED
--- NOTE | 2020-01-01 | NUR ---
PT SLEEPING WELL NOT DISTRESS NOTED ON TELEMETRY SB BBB IV ON LEFT AC INFUSING WELL, REPOSITIONED Q2H
--- NOTE | 2020-01-01 01:21 | NUR ---
ABD DRESSING DRY AND INTACT , AGUILAR CAT DRAINING WELL YELLOW URINE, ON TELEMETRY SR
[2020-01-01] MEDS: HYDROmorphone PFS 2 MG/ML SYR IVP PRN ×2 (01:32→08:22)
[2020-01-01 04:00] VITALS: BP 117/77
--- NOTE | 2020-01-01 04:00 | NUR ---
SPONGE BATH GIVEN LINEN CHANGED IV ON LEFT AC INFUSING WELL
[2020-01-01] MEDS: PIPERACILLIN/TAZOBACTAM 3.375 GM in DEXTROSE 5% 50 ML IV SCH ×3 (06:05→17:18)
[2020-01-01 06:19] LABS: BASOPHILS # (AUTO) 0.1 K/uL (0.00-0.22); BASOPHILS % (AUTO) 0.9 % (0.0-2.0); EOSINOPHILS # (AUTO) 0.3 K/uL (0-0.4); EOSINOPHILS % (AUTO) 3.6 % (0.0-4.0); HEMATOCRIT 40.9 % (36-52); HEMOGLOBIN 14.2 g/dL (12.0-18.0); LYMPHOCYTES # (AUTO) 1.7 K/uL (2.0-11.5); LYMPHOCYTES % (AUTO) 17.5 % (20.5-51.1); MEAN CORPUSCULAR HEMOGLOBIN 31 pg (27-31); MEAN CORPUSCULAR HGB CONC 35 g/dL (33-37); MEAN CORPUSCULAR VOLUME 90.5 fL (80-94); MONOCYTES # (AUTO) 0.7 K/uL (0.8-1.0); MONOCYTES % (AUTO) 7.3 % (1.7-9.3); NEUTROPHILS # (AUTO) 6.8 K/uL (1.8-7.7); NEUTROPHILS % (AUTO) 70.7 % (42.2-75.2); PLATELET COUNT (AUTO) 422 K/uL (140-450); RED BLOOD CELL COUNT(AUTO) 4.52 MIL/uL (4.20-6.10); RED CELL DISTRIBUTION WIDTH 14.1 % (11.6-13.7); WHITE BLOOD COUNT (AUTO) 9.6 K/uL (4.8-10.8)
--- NOTE | 2020-01-01 06:20 | NUR ---
AFTER PAIN MEDIC GIVEN PT REMAIN STABLE DENIES ANY PAIN ON TEL SR , PT HAVE NOT PASS GASSES YET
--- NOTE | 2020-01-01 06:22 | NUR ---
PT WILL BE ENDORSED TO DAY SHIFT NURSE FOR CONTINUE OF CARE
[2020-01-01 06:40] LABS: ALBUMIN 2.4 g/dL (3.4-5.0); ANION GAP 10.1 (8-16); CARBON DIOXIDE 31.8 mmol/L (21-32); CREATININE 0.9 mg/dL (0.6-1.3); POTASSIUM 3.9 mmol/L (3.5-5.1); TOTAL BILIRUBIN 0.6 mg/dL (0.0-1.0)
--- NOTE | 2020-01-01 07:15 | NUR ---
RECEIVED BEDSIDE REPORT FROM MANAGER CLINICAL APPLICATIONS NURSE. PT IS AWAKE AND ALERT IN BED, NO S/S OF ACUTE DISTRESS, C/O 710 ABD INCISIONAL PAIN. WILL ADMINISTER PAIN MED. AGUILAR CATHETER IS IN PLACE DRAINING ANTIONETTE URINE. IV SITE L AC 20 G INFUSING D5 1/2 NS 80 ML/HR. ABD DRESSING IS DRY AND INTACT, HELD DOWN BY AN ABD BINDER. FALL PRECAUTIONS IN PLACE. PT STATES THAT HE HAS NOT GOTTEN UP SINCE HIS SURGERY YET, AND HASN'T PASSED GAS. CALL LIGHT IS WITHIN REACH. WILL CONTINUE TO MONITOR.
[2020-01-01 08:00] VITALS: BP 113/73
[2020-01-01] MEDS: TAMSULOSIN 0.4 MG CAP PO SCH (08:26)
[2020-01-01] MEDS: SIMETHICONE 40 MG/0.6 ML PO SCH ×3 (08:27→17:13)
[2020-01-01] MEDS: ENOXAPARIN 40 MG/0.4 ML SYR SUBQ SCH (08:28)
[2020-01-01] MEDS: NICOTINE TRANSD SYS 21 MG/24 HR PATCH TD SCH (08:29)
--- NOTE | 2020-01-01 08:43 | NUR ---
AM MEDS ADMINISTERED, PT TOLERATED WELL. ADMINISTERED PRN DILAUDID 2 MG FOR 8/10 ABD PAIN.
--- NOTE | 2020-01-01 09:55 | NUR ---
PT UP AND WALKING AROUND THE HALLWAY. STEADY STRONG GAIT, NO C/O WEAKNESS OR DIZZINESS.
[2020-01-01] MEDS: DEXT 5% / NACL 0.45% 1,000 ML IV SCH (10:22)
--- NOTE | 2020-01-01 11:15 | NUR ---
PT SEEN BY DR MOISE. PER DR MOISE, DC AGUILAR CATHETER AND PUT PT ON FULL LIQUID DIET. MONITOR PT FOR ABILITY TO URINATE AND HAVE A BM, AND TOLERATE HIS DIET.
--- NOTE | 2020-01-01 11:18 | NUR ---
01/01/20 RD INITIAL ASSESSMENT COMPLETED PLEASE REFER TO NUTRITION ASSESSMENT UNDER CARE ACTIVITY FOR ESTIMATED NUTRITIONAL NEEDS. 1. CONTINUE NPO MEDICALLY APPROPRIATE 2. IF PATIENT WILL NEED TO REMAIN NPO X 3 MORE DAYS CONSIDER PARENTERAL NUTRITION. 3. IF/WHEN MEDICALLY STABLE FOR PO INTAKE CONSIDER ADVANCING TO CLEAR LIQUID DIET WITH ENSURE CLEAR TID AND GRADUALLY ADVANCE DIET TO SOLIDS 4. RD TO FOLLOW-UP 2-3 DAYS, HIGH RISK ALEJANDRA ROCHA RD Addendum: 01/01/20 at [address] 1. CONTINUE FULL LIQUID DIET TOLERATED 2. RECOMMEND GRADUALLY ADVANCING TO SOFT DIET TOLERATED
--- NOTE | 2020-01-01 11:34 | NUR ---
AGUILAR CATHETER DC'D PER ORDER Addendum: 01/01/20 at 1640 by Tanika Carter RN PT WAS ABLE TO URINATE ON HIS OWN, A SMALL AMOUNT (ABOUT 100 ML) OF ANTIONETTE URINE.
[2020-01-01 12:00] VITALS: BP 111/73
[2020-01-01] MEDS ORDERED: METOCLOPRAMIDE 10 MG/2 ML INJ VIAL IVP PRN (13:25)
[2020-01-01] MEDS ORDERED: SODIUM PHOSPHATE 118 ML ENEM RC SCH (13:30)
[2020-01-01] MEDS: oxyCODONE/APAP 5/325 MG 1 TAB TAB PO PRN (13:55)
--- NOTE | 2020-01-01 15:05 | NUR ---
FLEET ENEMA ADMINISTERED PER MD ORDER. PT TOLERATED WELL, BUT HAD TO GET UP TO GO TO THE BATHROOM VERY QUICKLY, AND THE ENEMA DID NOT HAVE A CHANCE TO ABSORB. PT REPORTED THAT HE WAS ABLE TO HAVE A LITTLE BIT OF BM, AND WAS ABLE TO PASS A GOOD AMOUNT OF GAS. PT ASKING TO HAVE A SUPPOSITORY LATER ON. I REMINDED PT THAT HE NEEDS TO WALK AROUND TO HELP RELEASE THE BLOATING.
[2020-01-01 16:00] VITALS: BP 110/74
[2020-01-01] MEDS ORDERED: CRUSHER, PILL MC ONE (16:56)
[2020-01-01] MEDS: METOCLOPRAMIDE 10 MG TAB PO SCH (17:10)
--- NOTE | 2020-01-01 17:35 | NUR ---
PT C/O SEVERE ABD PAIN, EVEN THOUGH HE HAD PERCOCET 3 HOURS AGO. I TOLD PT THAT THE DOCTOR DC'D HIS 2 MG DILAUDID Q3H PRN. PT IS ASKING FOR SOMETHING ELSE FOR PAIN BESIDES THE PERCOCET. I PAGED ON-CALL DR. AUSTIN. DR GEOVANNA HINES DILAUDID 0.5 MG IVP Q4H PRN. Addendum: 01/01/20 at 1753 by Tanika Carter RN 0.5 MG DILAUDID PRN IS FOR BREAKTHROUGH PAIN IN BETWEEN PERCOCET ADMINISTRATION.
--- NOTE | 2020-01-01 18:54 | NUR ---
PT C/O SEVERE BLOATING IN HIS ABDOMEN, PUTTING PRESSURE UP ONTO HIS LUNGS AND MAKING IT HARD TO BREATHE. 2L O2 NC PROVIDED FOR BREATHING COMFORT, SATS CURRENTLY 93-94%. I CALLED DR LOPEZ TO NOTIFY HIM OF THIS, DR LOPEZ TORB NASOGASTRIC TUBE CONNECTED TO A AGUILAR BAG AND HUNG LOW, WITH MANUAL SUCTIONING EVERY 2-3 HOURS, FOLLOWED BY ABD XRAY TO VERIFY PLACEMENT OF NGT.
--- NOTE | 2020-01-01 19:25 | NUR ---
ENDORSED PT TO TOY TRAINS AND ACCESSORIES SALESPERSON NURSE FOR CONTINUITY OF CARE.
--- NOTE | 2020-01-01 19:30 | NUR ---
RECEIVED BEDSIDE REPORT FROM AM SHIFT RN JAVAD, FOR PT'S CONTINUITY OF CARE. PT IS AAOX4, AMBULATORY, DENIES ANY PAIN BUT STATES FEELS BLOATED, PT IS ON ROOM AIR, HAS LEFT AC 20G SALINE LOCK. EXPLAINED TO PT THE FUNERAL PLANNING COUNSELOR ROUTINE, PT VERBALIZED UNDERSTANDING. SAFETY MEASURES IN PLACE, AND CALL LIGHT IS WITHIN REACH. WILL MONITOR PT THROUGHOUT SHIFT.
--- NOTE | 2020-01-01 19:35 | NUR ---
GAVE PATIENT Maryuri MARIE TO JEROMY HER MOUTH PATIENT HAS A GOOD COUGH Addendum: 01/01/20 at 1951 by Mirta Caldera RT ERROR WRONG PATIENT
[2020-01-01] MEDS: LORazepam 2 MG/ML VIAL IVP PRN (19:43)
[2020-01-01] MEDS: HYDROmorphone 1 MG/ML AMP IVP PRN (19:44)
--- NOTE | 2020-01-01 19:45 | NUR ---
PT C/O ABD PAIN DT BLOATING, INCREASED ANXIETY DT NGT INSERTION ORDER. ADMINISTERED PRN IVP PAIN MEDICATION AND PRN IVP ANTI ANXIETY MEDICATION ORDERED.
--- NOTE | 2020-01-01 19:54 | NUR ---
PATIENT DOES NOT WANT HHNTX AT THIS TIME
[2020-01-01 20:00] VITALS: BP 126/85
--- NOTE | 2020-01-01 20:20 | NUR ---
NGT INSERT SUCCESSFUL WITH HELP FROM BATTERY ASSEMBLER, PT TOLERATED INSERTION. STATES INCREASE ANXIETY AND PAIN ON INSERTION SITE, AFTER INSERTION. PT TEACHING GIVEN, ENCOURAGED PT TO DO BREATHING EXERCISES AND RELAXATION TECHNIQUES. PT FAMILY MEMBER AT BEDSIDE, INSISTS ON GIVING PT MORE PAIN AND ANTI ANXIETY MEDICATION. EXPLAINED TO PT AND FAMILY MEMBER THAT MD ORDER IS NEEDED. WILL NOTIFY MD. XRAY ORDERED TO VERIFY PLACEMENT OF NGT.
--- NOTE | 2020-01-01 20:40 | NUR ---
XRAY TAKEN FOR PLACEMENT VERIFICATION.
--- NOTE | 2020-01-01 21:50 | NUR ---
PAGED CEMENT TILE MAKER MD FOR PT'S REQUEST TO GET ANOTHER DOSE OF PAIN MEDICATION AND ANTI ANXIETY MEDICATION. DR. AUSTIN CALLED BACK, STATED THAT HE'S NOT COMFORTABLE TO GIVE ANOTHER DOSE OF PAIN MEDICATION AND ANTI ANXIETY MEDICATION. WILL NOTIFY PT.
--- NOTE | 2020-01-01 22:00 | NUR ---
NOTIFIED DR. SNOW RE: ABD DISTENTION, NGT INSERTION, AND ABD PAIN AND INCREASING ANXIETY. MD ORDERED NGT SUCTION ON HIGH FOR 2 MIN Q2-3H, THEN LEAVE ON GRAVITY ATTACHED TO AGUILAR BAG; HYDROMORPHONE 2MG ONCE; KETOROLAC 30MG IVP Q6H PRN FOR SEVERE PAIN; LORAZEPAM 2MG IVP Q6H PRN FOR ANXIETY/AGITATION. WILL CARRY OUT ORDERS. PT NOTIFIED, EXPLAINED THE NEW ORDERS, PT VERBALIZED UNDERSTANDING.
--- NOTE | 2020-01-01 22:15 | NUR ---
XRAY CONFIRMED PLACEMENT. SUCTION IN PLACE, 2 MIN ON HIGH. OIL GAS AND PIPE TESTER, HI TEACHER, FAMILY MEMBER AND I ARE PRESENT DURING SUCTIONING. PT TEACHING GIVEN, PROCEDURE EXPLAINED TO PT, PT VERBALIZED UNDERSTANDING.
[2020-01-01] MEDS ORDERED: HYDROmorphone PFS 2 MG/ML SYR IVP ONE (22:20)
[2020-01-01] MEDS ORDERED: LORazepam 2 MG/ML VIAL IM/IVP PRN (22:20)
[2020-01-01] MEDS ORDERED: KETOROLAC 30 MG/ML VIAL IVP PRN (22:20)
--- NOTE | 2020-01-01 22:37 | NUR ---
ADMINISTERED SCHEDULED IVP PAIN MEDICATION ORDERED. PT TEACHING GIVEN. WILL CONTINUE TO MONITOR PT.
[2020-01-02] VITALS: BP 125/79
[2020-01-02] MEDS: PIPERACILLIN/TAZOBACTAM 3.375 GM in DEXTROSE 5% 50 ML IV SCH ×5 (00:03→23:44)
--- NOTE | 2020-01-02 00:50 | NUR ---
FOUND PT WITH NGT OUT. GENERAL LABOR FORKLIFT OPERATOR AWARE. PT STATED HE FEELS MUCH BETTER, AND "CANNOT TAKE THE NG TUBE ANYMORE, SO I PULLED IT OUT". ACKNOWLEDGED THAT IF NGT NEEDED TO BE REINSERTED IN A.M., HE GIVES HIS CONSENT. PT STATED HE FEELS LESS BLOATED AND COULD BREATHE MUCH BETTER ALREADY. NGT OUTPUT 50 ML, GREENISH, BILE-LIKE CONTENT. PT TEACHING GIVEN RE: IMPORTANCE OF TURNING AND REPOSITIONING, AND TO PASS GAS.
--- NOTE | 2020-01-02 01:20 | NUR ---
NOTIFIED DR. SNOW RE: NGT REMOVAL/REFUSAL FOR REINSERTION. NEW ORDER OF FLEET ENEMA FOR A.M. AND KEEP PT NPO. WILL CARRY OUT ORDERS. PT ASLEEP WITH NO SIGNS OF DISTRESS. WILL CONTINUE TO MONITOR PT.
--- NOTE | 2020-01-02 02:27 | NUR ---
PT ASLEEP WITH NO SIGNS OF DISTRESS. WILL CONTINUE TO MONITOR PT.
--- NOTE | 2020-01-02 04:00 | NUR ---
VS CHECKED AND CHARTED. ASSISTED PT TO THE RESTROOM, PT TOLERATED ACTIVITY WELL. PT DENIES ANY PAIN. PT MADE COMFORTABLE. WILL CONTINUE TO MONITOR PT.
[2020-01-02 04:04] VITALS: BP 121/79
--- NOTE | 2020-01-02 05:01 | NUR ---
ADMINISTERED SCHEDULED IV ABX ORDERED. PT AWAKE, DENIES ANY PAIN. REMINDED PT THE IMPORTANCE OF AMBULATING AND REPOSITIONING TO HELP ALLEVIATE WITH ABD DISTENTION/BLOATED. PT VERBALIZED UNDERSTANDING.
[2020-01-02 06:01] LABS: ALBUMIN 2.5 g/dL (3.4-5.0); ANION GAP 9.5 (8-16); CARBON DIOXIDE 29.2 mmol/L (21-32); CREATININE 0.9 mg/dL (0.6-1.3); POTASSIUM 3.7 mmol/L (3.5-5.1); TOTAL BILIRUBIN 1.1 mg/dL (0.0-1.0)
--- NOTE | 2020-01-02 06:19 | NUR ---
PT ASLEEP WITH NO SIGNS OF DISTRESS. WILL ENDORSE TO AM SHIFT RN FOR PT'S CONTINUITY OF CARE.
--- NOTE | 2020-01-02 06:40 | NUR ---
DR. SNOW CALLED FOR UPDATE. PT WENT TO THE RESTROOM AROUND 0400, PASSED GAS, AND PT STATED FELT RELIEVED AFTER. MD ORDERED FOR D5 0.45% NS AT 80ML/HR, AND TPN AFTER. WILL REVERIFY WITH MD RE: TPN, NEEDS TO HAVE PICC LINE. WILL ENDORSE TO AM SHIFT RN FOR PT'S CONTINUITY OF CARE.
[2020-01-02 06:43] LABS: BASOPHILS # (AUTO) 0.1 K/uL (0.00-0.22); BASOPHILS % (AUTO) 0.8 % (0.0-2.0); EOSINOPHILS # (AUTO) 0.4 K/uL (0-0.4); EOSINOPHILS % (AUTO) 3.6 % (0.0-4.0); HEMATOCRIT 39.7 % (36-52); HEMOGLOBIN 13.4 g/dL (12.0-18.0); LYMPHOCYTES # (AUTO) 1.6 K/uL (2.0-11.5); LYMPHOCYTES % (AUTO) 15.6 % (20.5-51.1); MEAN CORPUSCULAR HEMOGLOBIN 31 pg (27-31); MEAN CORPUSCULAR HGB CONC 34 g/dL (33-37); MEAN CORPUSCULAR VOLUME 90.3 fL (80-94); MONOCYTES # (AUTO) 0.9 K/uL (0.8-1.0); MONOCYTES % (AUTO) 8.7 % (1.7-9.3); NEUTROPHILS # (AUTO) 7.4 K/uL (1.8-7.7); NEUTROPHILS % (AUTO) 71.3 % (42.2-75.2); PLATELET COUNT (AUTO) 425 K/uL (140-450); RED CELL DISTRIBUTION WIDTH 14.2 % (11.6-13.7); WHITE BLOOD COUNT (AUTO) 10.4 K/uL (4.8-10.8)
[2020-01-02] MEDS: DEXT 5% / NACL 0.45% 1,000 ML IV SCH ×2 (06:47→19:10)
[2020-01-02] MEDS: METOCLOPRAMIDE 10 MG TAB PO SCH ×3 (06:53→16:53)
[2020-01-02] MEDS ORDERED: PPN PER PHARMACY MC SCH (06:55)
--- NOTE | 2020-01-02 07:20 | NUR ---
RECEIVED BEDSIDE REPORT FROM SUPERVISOR ACCOUNTS RECEIVABLE NURSE FOR CONTINUITY OF CARE. PT AWAKE AND RESTING ON BED. RT BY BEDSIDE AT THIS TIME. PT IS AAOX4, ABLE TO MAKE NEEDS KNOWN AND COMMUNICATE APPROPRIATELY. RESPIRATION EVEN AND UNLABORED ON RA. DENIED PAIN, SOB AND DIZZINESS. NO SIGNS OF DISTRESS NOTED. IV ON LAC 20G, CLEAN AND INTACT, INFUSING PER MD ORDER. PT IS CONTINENT AND ABLE TO AMBULATE TO THE BATHROOM. DISCUSSES PLAN OF CARE WITH PT AND PT VERBALIZED UNDERSTANDING. NPO MAINTAINED AND PT AWARE. TELE MONITOR ATTACHED. SAFETY MEASURES IN PLACE. BED IN LOW POSITION AND CALL LIGHT WITHIN REACH. INSTRUCTED PT TO USE THE CALL LIGHT FOR ANY ASSISTANCE AND PT AWARE.
--- NOTE | 2020-01-02 07:29 | NUR ---
EXPLAINED HHN PT NOT WILLING TO DO SAYS IT DOSE NOT WORK FOR HIM
[2020-01-02 08:00] VITALS: BP 124/72
--- NOTE | 2020-01-02 08:10 | NUR ---
HOUSESUPERVISOR ED IS TALKING TO PT AT BEDSIDE. PT REQUESTED TO GO AMA. PAGED DR MOISE AND ELIGIBILITY AND OCCUPANCY INTERVIEWER ON MD IS DR SIMS.
[2020-01-02] MEDS: HYDROmorphone 1 MG/ML AMP IVP PRN (08:14)
--- NOTE | 2020-01-02 08:14 | NUR ---
PT COMPLAINED HE HAS BREAKTHROUGH 5/10, REPOSITIONED AND TURN PT, PT STATED,"I NEED MED FOR IT, TURNING DOESN'T DO ANYTHING." MEDICATED WITH PRN PAIN MED DILAUDID VIA IVP, MED ED PROVIDED TO PT AND PT SAID OK. PT IS LYING ON BED AND RESTING AT THIS TIME. NO ACUTE RESPIRATORY DISTRESS NOTED. TELE MONITOR ATTACHED. SAFETY MEASURES IN PLACE.
[2020-01-02] MEDS ORDERED: SODIUM PHOSPHATE 118 ML ENEM RC ONE (09:00)
[2020-01-02] MEDS: TAMSULOSIN 0.4 MG CAP PO SCH (09:05)
[2020-01-02] MEDS: NICOTINE TRANSD SYS 21 MG/24 HR PATCH TD SCH (09:05)
[2020-01-02] MEDS: SIMETHICONE 40 MG/0.6 ML PO SCH ×3 (09:06→16:53)
[2020-01-02] MEDS: ENOXAPARIN 40 MG/0.4 ML SYR SUBQ SCH (09:07)
--- NOTE | 2020-01-02 09:07 | NUR ---
ADMINISTERED SCHEDULED MEDS PER MD ORDER, PT REQUESTED TO HOLD FLEET ENEMA UNTIL KUB RESULT OUT AND REQUESTED TO STOP IVF DUE TO HE DOESN'T WANT EXCESSIVE FLUID IN BODY, EXPLAINED TO PT THAT IVF D5NS IS TO KEEP HIS BODY NOURISH SINCE HE IS NPO, PT WAS AWARE AND INSISTED TO DISCONNECTED FROM IVF; STOP PER PT REQUESTED. ADMINISTERED THE REST OF THE REST OF MEDS PER MD ORDER, PT TOLERATED WELL. PT AWAKE AND WATCHING TV ON BED AT THIS TIME. NO SIGNS OF DISTRESS NOTED. TELE MONITOR ATTACHED. SAFETY MEASURES IN PLACE. BED IN LOW POSITION AND CALL LIGHT WITHIN REACH. INSTRUCTED PT TO USE THE CALL LIGHT FOR ANY ASSISTANCE AND PT AWARE.
--- NOTE | 2020-01-02 09:31 | NUR ---
RECEIVED A CALL BACK FROM DR SIMS, INFORMED DR SIMS THAT PT REQUESTS TO GO AMA DESPITE HOUSESUPERVISOR SPOKE TO HIM AND HE IS NOT MEDICALLY CLEAR BY MD. PER DR SIMS, HE SUGGESTS THAT DO NOT LET PT GO AMA SINCE THIS IS HIS 1ST DAY AND HE HAS NEVER MEET THE PT. PER DR SIMS, HE WILL COME TO ROUND AT 1400 AND WILL TALK TO PT HIMSELF. EXPLAINED TO PT THAT DR SIMS WILL COME IN AND TALK TO HIM, PT AWARE AND PT IS TALKING ON THE PHONE WITH FRIEND. NO SIGNS OF DISTRESS NOTED. TELE MONITOR ATTACHED. SAFETY MEASURES IN PLACE.
[2020-01-02] MEDS: oxyCODONE/APAP 5/325 MG 1 TAB TAB PO PRN ×2 (09:56→17:07)
--- NOTE | 2020-01-02 09:56 | NUR ---
PT COMPLAINED HE STILL HAS PAIN AROUND HIS INCISIONAL SITES 07/21, MEDICATED PT WITH PRN PAIN MED PERCOCET, MED ED PROVIDED AND PT SAID OK. PT TOLERATED PO MED WELL WITH A SIP OF WATER. PT IS RESTING ON BED. NO SIGNS OF DISTRESS NOTED. TELE MONITOR ATTACHED. SAFETY MEASURES IN PLACE.
--- NOTE | 2020-01-02 10:30 | NUR ---
PT AWAKE AND TALKING TO BROTHER KALANI AT BEDSIDE. NO SIGNS OF DISTRESS NOTED. TELE MONITOR ATTACHED. SAFETY MEASURES IN PLACE.
[2020-01-02 10:58] LABS: MAGNESIUM 2.1 mg/dL (1.8-2.4); PHOSPHORUS 2.9 mg/dL (2.5-4.9)
--- NOTE | 2020-01-02 11:17 | NUR ---
ADMINISTERED MED PER MD ORDER, MED EDUCATION PROVIDED TO PT, PT SAID OK. ADMINISTERED ENEMA, PT TOLERATED WELL. NO SIGNS OF DISTRESS NOTED. TELE MONITOR ATTACHED. SAFETY MEASURES IN PLACE.
--- NOTE | 2020-01-02 11:56 | NUR ---
DR DAY ASSESSED AND CHANGED THE DRESSING FOR PT. PER DR DAY, HOLD IVF AND GIVE YOGURT AT 1600 TO SEE IF PT IS ABLE TO TOLERATED. PT TOLERATED DRESSING WELL. NO SIGNS OF DISTRESS NOTED. TELE MONITOR ATTACHED. SAFETY MEASURES IN PLACE.
[2020-01-02 12:00] VITALS: BP 115/69
--- NOTE | 2020-01-02 12:46 | NUR ---
IV INFILTRATED ON RAC, REMOVED IV AND CANNULA INTACT, NO BLEEDING AT IV SITE. STATED NEW IV ON LAC 20, CLEAN AND PATENT, ADMINISTERED ZOSYN AND MYLICON PER MD ORDER, [facility] ED PROVIDED, PT SAID OK. PT AWAKE AND RESTING ON BED. NO SIGNS OF DISTRESS NOTED. TELE MONITOR ATTACHED. SAFETY MEASURES IN PLACE. Addendum: 01/02/20 at 1255 by Ifeoma Morris RN INFILTRATED ON LAC, STARTED NEW IV ON RAC.
--- NOTE | 2020-01-02 13:56 | NUR ---
PT IS RESTING ON BED, AROUSABLE TO VOICE. DENIED PAIN, SOB AND DIZZINESS AT THIS TIME. NO SIGNS OF DISTRESS NOTED. TELE MONITOR ATTACHED. SAFETY MEASURES IN PLACE.
--- NOTE | 2020-01-02 15:15 | NUR ---
PT IS ASLEEP AT THIS TIME. EVEN AND UNLABORED CHEST RISES ON RA NOTED. NO SIGNS OF DISTRESS NOTED. TELE MONITOR ATTACHED. SAFETY MEASURES IN PLACE.
[2020-01-02 16:00] VITALS: BP 120/70
--- NOTE | 2020-01-02 16:53 | NUR ---
ADMINISTERED SCHEDULED MEDS WITH SIPS OF WATER, MEDS EDUCATION PROVIDED TO PT AND PT VERBALIZED UNDERSTANDING. PT TOLERATED PO MEDS WELL. NO SIGNS OF DISTRESS NOTED. TELE MONITOR ATTACHED. SAFETY MEASURES IN PLACE. BED IN LOW POSITION AND CALL LIGHT WITHIN REACH. INSTRUCTED PT TO USE THE CALL LIGHT FOR ANY ASSISTANCE AND PT AWARE.
--- NOTE | 2020-01-02 17:07 | NUR ---
ATTENDED TO PT'S CALL LIGHT AND PT COMPLAINED THAT HE HAS 9/10 PAIN AROUND HIS INCISIONAL SITES, MEDICATED WITH PRN PAIN MED PERCOCET, MED ED PROVIDED TO PT AND PT VERBALIZED UNDERSTANDING. CHANGED PT'S GOWN INTO BLUE AND PT AMBULATED TO THE BATHROOM WITH STEADY GAIT. NO SIGNS OF DISTRESS NOTED. TELE MONITOR ATTACHED. SAFETY MEASURES IN PLACE.
--- NOTE | 2020-01-02 18:08 | NUR ---
ADMINISTERED ZOSYN VIA IVPB PER MD ORDER, MED EDUCATION PROVIDED AND PT VERBALIZED UNDERSTANDING. PT AWAKE AND SITTING UP ON BED WATCHING TV. NO SIGNS OF DISTRESS NOTED. TELE MONITOR ATTACHED. SAFETY MEASURES IN PLACE.
--- NOTE | 2020-01-02 19:12 | NUR ---
ENDORSED PT AT BEDSIDE TO COMPUTER ANIMATOR NURSE KISSES FOR CONTINUITY OF CARE. PT AWAKE AND TALKING ON HIS PHONE. NO SIGNS OF DISTRESS NOTED. TELE MONITOR ATTACHED. SAFETY MEASURES IN PLACE.
--- NOTE | 2020-01-02 19:29 | NUR ---
RECEIVED BEDSIDE REPORT FROM DAY SHIFT NURSE. PATIENT IS AWAKE, ALERT, AND COOPERATIVE. RESPIRATION EVEN UNLABORED ON ROOM AIR. NO DISTRESS NOTED. SKIN IS WARM AND DRY. S/P LAP APPENDECTOMY. DENIES PAIN. PLAN OF CARE WAS DISCUSSED. ALL SAFETY MEASURES IN PLACE. BED IS AT LOW POSITION. CALL LIGHT WITHIN REACH AND VERBALIZES ITS USE. WILL CONTINUE TO MONITOR.
[2020-01-02 20:00] VITALS: BP 119/75
[2020-01-02] MEDS ORDERED: DEXT 5% / NACL 0.45% 1,000 ML IV SCH (20:00)
[2020-01-02] MEDS ORDERED: MULTIVITAMIN-12 10 ML in DEXTROSE 50% 600 ML, AMINO ACIDS 8.5% 500 ML, FAT EMULSION 20%... IV SCH ×4 (20:00)
--- NOTE | 2020-01-02 20:05 | NUR ---
INITIAL ASSESSMENT DONE. VITALS WERE TAKEN. PATIENT IS S/P LAP APPY ABDOMINAL DRESSING NOTED NO DRAINAGE. WILL CONTINUE TO MONITOR.
--- NOTE | 2020-01-02 20:11 | NUR ---
FIRST DOSE OF TPN GIVEN RUNNING AT 50ML/HR PER ORDER. PATIENT IS TOLERATING IT WELL. WILL CONTINUE TO MONITOR.
--- NOTE | 2020-01-02 22:50 | NUR ---
CHECKED PATIENT. PATIENT IS AWAKE WATCHING TV RESPIRATION EVEN UNLABORED ON ROOM AIR. NO DISTRESS NOTED. WILL CONTINUE TO MONITOR.
[2020-01-02] MEDS: BLOOD GLUCOSE MONITORING 1 DEV DEV MC SCH (23:51)
[2020-01-03] VITALS: BP 99/75
[2020-01-03] MEDS ORDERED: INSULIN LISPRO SLIDING SCALE 100 UNITS/ML VIAL SUBQ PRN
--- NOTE | 2020-01-03 00:15 | NUR ---
VITALS WERE TAKEN. PATIENT IN STABLE CONDITION. WILL CONTINUE TO MONITOR.
--- NOTE | 2020-01-03 01:15 | NUR ---
PATIENT WANTS TO STOP TPN AND DONT WANT TO BE CONNECTED TO ANY IV FLUIDS. PER PATIENT ITS MAKING HIM BLOATED. EDUCATED THE PURPOSE OF TPN AND IV FLUIDS AND EXPLAINED RISK AND BENEFITS X2 STILL REFUSED. WILL NOTIFY MD. AND WILL CONTINUE TO MONITOR.
[2020-01-03 04:00] VITALS: BP 126/73
--- NOTE | 2020-01-03 04:05 | NUR ---
VITALS WERE TAKEN. PATIENT IS IN STABLE CONDITION. NO DISTRESS NOTED. CHECKED ABDOMINAL DRESSING. NO DRAINAGE NOTED. WILL CONTINUE TO MONITOR.
[2020-01-03] MEDS: HYDROmorphone 1 MG/ML AMP IVP PRN (05:34)
--- NOTE | 2020-01-03 05:34 | NUR ---
PATIENT COMPLAINED OF ABDOMINAL PAIN 06/20. PRN PAIN MED ADMINISTERED PER ORDER. WILL CONTINUE TO MONITOR.
[2020-01-03] MEDS: BLOOD GLUCOSE MONITORING 1 DEV DEV MC SCH (06:11)
[2020-01-03 06:28] LABS: ANION GAP 10.6 (8-16); CARBON DIOXIDE 28.1 mmol/L (21-32); CREATININE 0.9 mg/dL (0.6-1.3); POTASSIUM 3.7 mmol/L (3.5-5.1)
--- NOTE | 2020-01-03 06:28 | NUR ---
PATIENT WANTS TO GO AMA DUE TO FEELING THAT HIS NOT GETTING THE TREATMENT THAT HE NEEDS HERE. EXPLAINED THE RISKS OF LEAVING AMA. X2 STILL WANTS TO AMA. NOTIFIED
--- NOTE | 2020-01-03 06:30 | NUR ---
PATIENTS WANTS TO GO AMA. EXPLAINED THE RISK AND BENEFITS X2 STILL REFUSED. WILL NOTIFY MD AND THE SURGEON.
[2020-01-03 06:34] LABS: PHOSPHORUS 2.8 mg/dL (2.5-4.9)
--- NOTE | 2020-01-03 06:35 | NUR ---
SPOKE WITH DR. SNOW REGARDING PATIENT DESIRED TO GO AMA. DR. SNOW SAID HE CAN GO HOME JUST DO A FOLLOW UP THIS SATURDAY TO SEE HIM.
--- NOTE | 2020-01-03 06:45 | NUR ---
DR. SNOW CALLED AGAIN RECOMMENDING SMALL BOWEL SERIES FOR THE PATIENT. PATIENT REFUSED WANTS TO GO HOME. DOESNT WANT TO DO ANY MORE PROCEDURE.
--- NOTE | 2020-01-03 06:50 | NUR ---
PAGED DR. LEVI CORREA
[2020-01-03] MEDS: METOCLOPRAMIDE 10 MG TAB PO SCH (06:52)
--- NOTE | 2020-01-03 07:00 | NUR ---
PATIENT DOESNT WANT TO WAIT FOR THE CALL. WANTS TO LEAVE AND SIGN THE PAPERWORK.
--- NOTE | 2020-01-03 07:15 | NUR ---
PATIENT LEFT THE FACILITY AND SIGNED AMA FORM. IV REMOVED NO ACTIVE BLEEDING NOTED.
== END 2020-01-03 07:16 | disposition left against medical advice (07) | DRG 227 ==
LOC: MED 07:14 → MMU 10:39 → MIC 16:40 → MTU 12-29 15:20
PROVIDERS: ADMIT Internal Medicine Pulmonary Disease; ATTEND Internal Medicine Pulmonary Disease
PROC: 0DTJ0ZZ Resection of Appendix, Open Approach (ICD-10-PCS; 2019-12-28)
PROC: 0WQF0ZZ Repair Abdominal Wall, Open Approach (ICD-10-PCS; principal; 2019-12-28 12:00)
DX: K35.33 Acute appendicitis with perforation, localized peritonitis, and gangrene, with abscess (principal); K43.0 Incisional hernia with obstruction, without gangrene; K66.0 Peritoneal adhesions (postprocedural) (postinfection); K52.9 Noninfective gastroenteritis and colitis, unspecified; F17.210 Nicotine dependence, cigarettes, uncomplicated; K56.7 Ileus, unspecified
CPT/HCPCS: 36415; 71045; 74018; 80048; 80053; 82150; 82948; 83690; 83735; 84100; 84478; 85025; 87040; 87081; 88304; 88307; 93005; 94640; 96365; 97110; 97112; 97116; 97161-GP; 97530; 99285; A4649; A9153; C1758; J0330; J1100; J1170; J1580; J1650; J1885; J2060; J2405; J2543; J2704; J3010; J3490; J7030; J7060; J7613; J7620; J8597; Q0092

== ENCOUNTER 2021-08-05 23:07 | Emergency (ER) | payer OTHER ==
[~2021-08-05] VITALS: Ht 177.8 cm; Wt 95.3 kg
[2021-08-05 23:20] VITALS: BP 149/104
--- NOTE | 2021-08-05 23:53 | NUR ---
TO BED AMBULATORY
--- NOTE | 2021-08-06 00:05 | NUR ---
61 yo m bib self with c/c 4/10 lower abd pain s/p hernial repair x1mos ago. pt stated he has gone to [facility] and had 3ct done in past 15 days, was given antibiotics. pt states he needs surgery because he was told he has an infection in skin linning, stated antibiotics are not working. surgical site is warm to touch, no redness, no drainage. active bowel sounds x4. pt states he is able to pass gas and bm. hx: ruptured hernia nka
[2021-08-06 01:21] VITALS: BP 152/75
--- NOTE | 2021-08-06 01:21 | NUR ---
Patient discharged with v/s stable. Written and verbal after care instructions given and explained. Patient verbalized understanding. Ambulatory with steady gait. All questions addressed prior to discharge. Advised to follow up with PMD.
== END 2021-08-06 01:21 | disposition home or self-care (01) ==
LOC: MED 23:07
DX: R10.31 Right lower quadrant pain (principal); J44.9 Chronic obstructive pulmonary disease, unspecified; I10 Essential (primary) hypertension; F17.200 Nicotine dependence, unspecified, uncomplicated; Z98.890 Other specified postprocedural states; Z48.01 Encounter for change or removal of surgical wound dressing
CPT/HCPCS: 99281